=== PATIENT | female | born 1955 | race Caucasian/White ===

== ENCOUNTER 2018-07-17 18:13 | Emergency (ER) | payer OTHER ==
[2018-07-17] MEDS ORDERED: OMEP-137 PO (18:24)
[2018-07-17] MEDS ORDERED: FENO43CA PO (18:24)
[2018-07-17] MEDS ORDERED: EZET1TAB86 PO (18:24)
[2018-07-17] MEDS ORDERED: ESTR0.62 PO (18:24)
--- NOTE | 2018-07-17 18:27 | ER Report ---
History and Physical Time Seen By MD: 18:27 HPI/ROS CHIEF COMPLAINT: Fall with laceration HISTORY OF PRESENT ILLNESS: 63-year-old female patient presents to the emergency room with complaint of a fall with laceration. Patient states that her going to dinner. She states that on the way and she tripped and fell striking the right side of her head. Patient states she believes she had a short period of LOC. She denies having any nausea, vomiting or diarrhea. Patient states she's not having dizziness. Patient states she is not taking any medication for this. REVIEW OF SYSTEMS: Respiratory: No cough, no dyspnea. Cardiovascular: No chest pain, no palpitations. Gastrointestinal: No vomiting, no abdominal pain. Musculoskeletal: No back pain. Allergies: Coded Allergies: No Known Drug Allergies (Unverified , 07/17/18) Home Meds Reported Medications Omeprazole (OMEPRAZOLE) 20 Mg Tablet.dr, 20 MG PO DAILY PRN for DYSPEPSIA, TAB 07/17/18 Estrogens, Conjugated 0.625 Mg Tab (PREMARIN 0.625 MG TAB) 0.625 Mg Tablet, 0.45 MG PO QDAY, TAB 07/17/18 Fenofibrate,Micronized (FENOFIBRATE) 43 Mg Capsule, 43 MG PO QDAY, CAPSULE 07/17/18 Ezetimibe/Simvastatin (VYTORIN 10-40 MG TABLET) 1 Each Tablet, 20-40 EACH PO QDAY 07/17/18 Past Medical/Surgical History Patient has a past medical history of reflux. Patient has surgical history of hysterectomy, dental implant, tonsillectomy. Reviewed Nurses Notes: Yes Constitutional Vital Sign - Last 24 Hours 07/17/18 07/17/18 07/17/18 07/17/18 18:20 18:25 18:30 18:35 Temp 97.8 Pulse 95 66 Resp 14 B/P (MAP) 187/87 (120) 187/87 170/102 (124) 163/91 (115) Pulse Ox 95 93 O2 Delivery Room Air 07/17/18 07/17/18 07/17/18 07/17/18 18:45 19:00 19:15 19:30 Pulse 60 66 62 B/P (MAP) 157/80 (105) 151/87 (108) 160/87 (111) 176/86 (116) Pulse Ox 94 94 93 88 07/17/18 07/17/18 19:45 20:01 Pulse 85 Resp 16 B/P (MAP) 149/72 (97) 132/85 (101) Pulse Ox 91 95 O2 Delivery Room Air Physical Exam General Appearance: The patient is alert, has no immediate need for airway protection and no current signs of toxicity. Eyes: Pupils are equal round and reactive to light. Posterior segments intact. Respiratory: Chest is non tender, lungs are clear to auscultation. Cardiac: regular rate and rhythm Gastrointestinal: Abdomen is soft and non tender, no masses, bowel sounds normal. Musculoskeletal: Neck: Neck is supple and non tender. Extremities have full range of motion and are non tender. Skin: No rashes or lesions. Patient has laceration to the right side of her face, just lateral to the right eye. Patient has no pain with ocular movements. DIFFERENTIAL DIAGNOSIS: After history and physical exam differential diagnosis was considered for head injury including but not limited to concussion, skull fracture, intraparenchymal contusion, subarachnoid, subdural and epidural hematoma. Medical Decision Making EKG/Imaging Imaging EXAMINATION: CT facial bones without IV contrast HISTORY: Fall, laceration COMPARISON: None. TECHNIQUE: Axial images were obtained through the facial bones. Coronal and sagittal reformatted images were generated from the source data. No IV contrast was administered. One of the following dose optimization techniques was utilized in the performance of this exam: automated exposure control; adjustment of the mA and/or kV according to patient size; or use of iterative reconstruction technique. Specific details can be referenced in the facility's radiology CT exam operational policy. FINDINGS: Mastoid air cells and sinuses: Moderate right maxillary sinus mucosal thickening. Osseous structures including mandible and orbital tran: No acute fracture. Chronic rightward nasal septum deviation. Visible soft tissues including orbital soft tissues and upper neck: Right lateral frontal scalp swelling and soft tissue gas in keeping with laceration. Right posterior maxilla dental implant partially extends into the inferior aspect of the right maxillary sinus cavity. Small foci of heterotopic ossification within the inferior aspect of the right frontal sinus near this dental implant, sagittal image 38. Visible intracranial structures: Normal. IMPRESSION: No fracture identified. Right lateral frontal scalp laceration. 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 Report Dictated By: Devin Woody MD at 07/17/2018 7:37 PM Report E-Signed By: Devin Woody MD at 07/17/2018 7:[address] scan without contrast HISTORY: Fall with laceration COMPARISONS: None TECHNIQUE: Non-contrast head CT was performed with sagittal and coronal reformations. One of the following dose optimization techniques was utilized in the performance of this exam: automated exposure control; adjustment of the mA and/or kV according to patient size; or use of iterative reconstruction technique. Specific details can be referenced in the facility's radiology CT exam operational policy. FINDINGS: There is no intracranial hemorrhage, hydrocephalus or midline shift. The basal cisterns, anderson-white differentiation, and convexity sulci are maintained. Normal orbital soft tissues. Right lateral frontal scalp swelling and soft tissue gas in keeping with laceration. Clear mastoid air cells. Moderate right maxillary sinus mucosal thickening. No fracture. IMPRESSION: No acute intracranial abnormality. Right lateral frontal scalp laceration. Report Dictated By: Devin Woody MD at 07/17/2018 7:34 PM Report E-Signed By: Devin Woody MD at 07/17/2018 7:36 PM ED Course/Re-evaluation ED Course Patient was admitted to an exam room, history of physical were obtained. Dif ferential diagnoses were considered. On examination patient has a 2 cm laceration to the right side of her face, just lateral to her eye. Patient has no pain with extraocular movements. Posterior segments the eyes are in tact, pupils are equal round and reactive to light. A CT scan of the head and facial bones were done. The wound was anesthetized, cleaned and repaired described be low. Imaging results were negative. We will go ahead and discharge patient home at this time. She is to limit activity by pain, she is follow-up with her primary care provider in 5-7 days to have sutures removed. Patient is to take Tylenol or ibuprofen as if her pain. I would like her to rest her brain and limit her TV and computer time. Patient and her verbalized understanding and agreement with plan. Procedure: Laceration repair. Verbal consent was obtained from the patient. The 2 cm laceration on the right side of the face, lateral to the eye was anesthetized in the usual fashion. The wound was scrubbed, draped and explored to its base with a gloved finger. There were no deep structures involved. No tendon injury was identified. The wound w as repaired with 9 simple interrupted sutures using 6-0 Prolene material. The wound repair was simple. The procedure was performed by myself. Decision to Disposition Date: Jul 17, 2018 Decision to Disposition Time: 20:21 Depart Departure Latest Vital Signs Vital Signs Date Time Temp Pulse Resp B/P (MAP) Pulse Ox O2 Delivery O2 Flow Rate FiO2 07/17/18 20:01 85 16 132/85 (101) 95 Room Air 07/17/18 18:25 97.8 Impression: Primary Impression: Laceration Additional Impression: Concussion Condition: Improved Disposition: HOME OR SELF-CARE Patient Instructions: Facial Laceration (ED) Additional Instructions: Keep wound dry for 48 hours. Follow up with your primary care provider in the next 5-7 days to have sutures removed. Monitor for signs of infection; redness, swelling, heat, discharge, increasing pain or red streaking. Take Tylenol or Ibuprofen as needed for pain. You may change dressing as needed. Get plenty of rest. Limit activity by pain. Limit TV and computer time. Monitor for confusion, increased irritability, uncontrollable vomiting, worsening headache or difficulty to arouse. Return to the ER if those are to occur. Follow up with your primary care provider in the next week. Problem Qualifiers Additional Impression: Concussion Encounter type: initial encounter Loss of consciousness presence/duration: with LOC of 30 min or less Qualified Codes: S06.0X1A - Concussion with loss of consciousness of 30 minutes or less, initial encounter SHAYE MATUTE Jul 17, 2018 18:27
[2018-07-17] MEDS ORDERED: HYDROMORPHONE HCL 1 MG/ML SYRINGE IM ONE (19:05)
--- NOTE | 2018-07-17 19:41 | RADIOLOGY IMAGING REPORT ---
FACILITY: [facility] PATIENT NAME: Pema Tidwell : 1955 MR: [id number] V: [id number] EXAM DATE: ORDERING PHYSICIAN: SHAYE MATUTE TECHNOLOGIST: Location: [facility] Patient: Pema Tidwell : 1955 Visit/Account:[id number] Date of Sevice: 07/17/[address] scan without contrast HISTORY: Fall with laceration COMPARISONS: None TECHNIQUE: Non-contrast head CT was performed with sagittal and coronal reformations. One of the following dose optimization techniques was utilized in the performance of this exam: autom ated exposure control; adjustment of the mA and/or kV according to patient size; or use of iterative reconstruction technique. Specific details can be referenced in the facility's radiology CT exam ope rational policy. FINDINGS: There is no intracranial hemorrhage, hydrocephalus or midline shift. The basal cisterns, anderson-white differentiation, and convexity sulci are maintained. Normal orbital soft tissues. Right lateral front al scalp swelling and soft tissue gas in keeping with laceration. Clear mastoid air cells. Moderate right maxillary sinus mucosal thickening. No fracture. IMPRESSION: No acute intracranial abnormality. Right lateral frontal scalp laceration. Report Dictated By: Devin Woody MD at 07/17/2018 7:34 PM Report E-Signed By: Devin Woody MD at 07/17/2018 7:36 PM WSN:[id number]
--- NOTE | 2018-07-17 19:44 | RADIOLOGY IMAGING REPORT ---
FACILITY: [facility] PATIENT NAME: Pema Tidwell : 1955 MR: [id number] V: [id number] EXAM DATE: ORDERING PHYSICIAN: SHAYE MATUTE TECHNOLOGIST: Location: [facility] Patient: Pema Tidwell : 1955 Visit/Account:[id number] Date of Sevice: 07/17/2018 EXAMINATION: CT facial bones without IV contrast HISTORY: Fall, laceration COMPARISON: None. TECHNIQUE: Axial images were obtained through the facial bones. Coronal and sagittal reformatted ricardo ges were generated from the source data. No IV contrast was administered. One of the following dose optimization techniques was utilized in the performance of this exam: autom ated exposure control; adjustment of the mA and/or kV according to patient size; or use of iterative reconstruction technique. Specific details can be referenced in the facility's radiology CT exam ope rational policy. FINDINGS: Mastoid air cells and sinuses: Moderate right maxillary sinus mucosal thickening. Osseous structures including mandible and orbital tran: No acute fracture. Chronic rightward nasal septum deviation. Visible soft tissues including orbital soft tissues and upper neck: Right lateral frontal scalp swel ling and soft tissue gas in keeping with laceration. Right posterior maxilla dental implant partially extends into the inferior aspect of the right maxillary sinus cavity. Small foci of heterotopic ossi fication within the inferior aspect of the right frontal sinus near this dental implant, sagittal ricardo ge 38. Visible intracranial structures: Normal. IMPRESSION: No fracture identified. Right lateral frontal scalp laceration. Posterior right maxillary dental implant partially extends into the inferior aspect of the right maxi llary sinus cavity with associated moderate inferior right maxillary sinus mucosal thickening and ass ociated heterotopic ossification within the inferior right maxillary sinus. Report Dictated By: Devin Woody MD at 07/17/2018 7:37 PM Report E-Signed By: Devin Woody MD at 07/17/2018 7:41 PM WSN:[email or web address]
[2018-07-17 20:01] VITALS: BP 132/85
== END 2018-07-17 20:38 | disposition home or self-care (01) ==
LOC: ER 18:41
DX: S01.01XA Laceration without foreign body of scalp, initial encounter (principal); S06.0X1A Concussion with loss of consciousness of 30 minutes or less, initial encounter; W01.198A Fall on same level from slipping, tripping and stumbling with subsequent striking against other object, initial encounter
CPT/HCPCS: 12001; 96372; 99283; J1170; 70450; 70486